=== PATIENT | male | born 1995 | race Caucasian/White ===

== ENCOUNTER 2018-06-28 12:56 | Emergency (ER) | payer SELFPAY ==
[2018-06-28 12:56] VITALS: BMI 30.2
[2018-06-28 13:28] VITALS: BP 132/72; PULSE 77; RESP 20; TEMP 98.6; O2SAT 98
--- NOTE | 2018-06-28 13:52 | C.PDOC ---
History Of Present Illness 23 yr old male w/ hx of marijuana use p/w chest pain. Pt notes x2 weeks of chest pain after playing basketball and being hit with an elbow into this chest. He notes L sided rib pain, worse with palpation and worse with intermittent deep breaths. No leg swelling, hemoptysis or hx of recent surgery or blood clots. No headache or neck pain or abdominal pain. No N/v. Has not taken any meds for the pain. No SOB. No orthopnea, pnd or leg swelling. No rash. No other complaints. Time Seen by Provider: 06/28/18 13:19 Chief Complaint (Nursing): Chest Pain Past Medical History Vital Signs: Last Vital Signs Temp 98.6 F 06/28/18 13:26 Pulse 77 06/28/18 13:26 Resp 20 06/28/18 13:26 BP 132/72 06/28/18 13:26 Pulse Ox 98 06/28/18 13:26 Primary Care Provider: FAMILY PROVIDER,NO Family History: States: Unknown Family Hx - Social History Hx Tobacco Use: No Hx Alcohol Use: No Hx Substance Use: Yes (marijuana) - Immunization History Hx Tetanus Toxoid Vaccination: No Hx Influenza Vaccination: No Hx Pneumococcal Vaccination: No Review Of Systems Constitutional: Negative for: Fever, Chills Eyes: Negative for: Pain, Vision Change ENT: Negative for: Ear Pain, Ear Discharge, Nose Pain, Nose Discharge, Nose Congestion, Mouth Pain, Mouth Swelling, Throat Pain Cardiovascular: Positive for: Chest Pain. Negative for: Palpitations, Orthopnea, Paroxysmal Noc. Dyspnea, Edema, Light Headedness Respiratory: Negative for: Cough, Shortness of Breath, Hemoptysis, SOB with Excertion, Sputum, Wheezing Gastrointestinal: Negative for: Nausea, Vomiting, Abdominal Pain, Diarrhea, Constipation, Melena, Hematochezia, Hematemesis Genitourinary: Negative for: Dysuria, Frequency, Hematuria, Penile Discharge, Rash, Penile Pain Musculoskeletal: Negative for: Neck Pain, Shoulder Pain, Back Pain, Hand Pain Skin: Negative for: Rash, Lesions, Jaundice Neurological: Negative for: Weakness, Numbness, Headache Psych: Negative for: Anxiety, Depression, Psychosis Physical Exam - Physical Exam Appears: Well, Non-toxic, No Acute Distress Skin: Normal Color, Warm, Dry Head: Atraumatic, Normacephalic, No Tenderness Eye(s): bilateral: Normal Inspection, PERRL, EOMI Ear(s): Bilateral: Normal Nose: Normal Tongue: Normal Appearing Lips: Normal Appearing Throat: Normal, No Erythema, No Exudate, No Drooling, No Mass Neck: Normal, Normal ROM, No Decreased ROM, No Midline Cervical Tenderness, No Paracervical Tenderness, Supple, Other (no meningeal signs) Lymphatic: Normal Exam, No Adenopathy Chest: Symmetrical, No Deformity, Tenderness (L chest), No Ecchymosis, No Subcutaneous Emphysema Cardiovascular: Rhythm Regular, No Rhythm Irregular, No Friction Rub, No Murmur, No JVD Respiratory: Normal Breath Sounds, No Decreased Breath Sounds, No Accessory Muscle Use, No Rales, No Rhonchi, No Stridor, No Wheezing Gastrointestinal/Abdominal: Normal Exam, Soft, No Tenderness, No Mass, No Distention, No Guarding Back: Normal Inspection, No CVA Tenderness, No Vertebral Tenderness Extremity: Normal ROM, No Tenderness Extremity: Bilateral: Atraumatic, No Pedal Edema, Normal Color And Temperature, Pelvis-Stable Pulses: Left Radial: Normal, Right Radial: Normal, Left Dorsalis Pedis: Normal, Right Dorsalis Pedis: Normal Neurological/Psych: Oriented x3, Normal Speech, Normal Cognition, Normal Cranial Nerves, No Cerebellar Signs, Normal Motor Gait: Steady ED Course And Treatment - Laboratory Results Result Diagrams: 06/28/18 14:03 06/28/18 14:03 O2 Sat by Pulse Oximetry: 98 Medical Decision Making Medical Decision Makin yr old male p/w L sided chest pain after being elbowed in the chest while playing basketball. CP reproducible to palpation, non pleuritic. No sob, orthopnea or pnd. Likely chest wall pain given reproducible, pending imaging, labs EK, nsr, no stemi 1526 imaging unremarkable labs unremarkable pt notes pain resolved clear for d/c home w/ return indications and f/u. Pt agreeable to plan Disposition - Disposition Referrals: Layton Alvares MD [Staff Provider] - Sr. Director [employer] Management Service [Outside] [facility] [Outside] [facility] [Outside] Roselle ArQule [facility] [Outside] Disposition: HOME/ ROUTINE Disposition Time: 15:23 Condition: STABLE Additional Instructions: SHITAL PEÑALOZA, thank you for letting us take care of you today. Your provider was Evan Mcdonald and you were treated for CHEST PAIN. The emergency medical care you received today was directed at your acute symptoms. If you were prescribed any medication, please fill it and take as directed. It may take several days for your symptoms to resolve. Return to the Emergency Department if your symptoms worsen, do not improve, or if you have any other problems. Please contact your doctor or call one of the physicians/clinics you have been referred to that are listed on the Patient Visit Information form that is included in your discharge packet. Bring any paperwork you were given at discharge with you along with any medications you are taking to your follow up visit. Our treatment cannot replace ongoing medical care by a primary care provider outside of the emergency department. Thank you for allowing the [facility] team to be part of your care today. If you had an X-Ray or CT scan: A Radiologist will review the ED reading if any change in treatment is needed we will contact you. If you had a blood, urine, or wound culture: It will take several days for the results, if any change in treatment is needed we will contact you. If you had an STI test: It will take 48 hours for the results. Please call after 1 week if you have not heard back. Instructions: Chest Pain (DC), Costochondritis (DC) Forms: [facility] ([place]) - Clinical Impression Clinical Impression: Chest pain, Chest wall pain
[2018-06-28 14:07] LABS: BASO % 0.6 % (0.0-2.0); EOS # 0.1 K/uL (0.0-0.7); EOS % 2.3 % (0.0-4.0); HEMOGLOBIN 14.8 g/dL (12.0-18.0); LYMPH # 1.6 K/uL (1.0-4.3); MEAN CELL VOLUME 96.1 fL (80.0-94.0); MEAN CORPUSCULAR HEMOGLOBIN 33.1 pg (27.0-31.0); MEAN CORPUSCULAR HGB CONC 34.5 g/dL (33.0-37.0); MONO # 0.5 K/uL (0.0-0.8); MONO % 9.4 % (0.0-10.0); NEUT # 3.2 K/uL (1.8-7.0); NEUT % 58.7 % (50.0-75.0); NRBC % 0.1 % (0.0-2.0); RBC 4.47 Mil/uL (4.40-5.90); RED CELL DISTRIBUTION WIDTH 12.8 % (11.5-14.5); WHITE BLOOD COUNT 5.5 K/uL (4.8-10.8)
[2018-06-28 14:26] LABS: ALB/GLOB RATIO 1.5 (1.0-2.1); ALBUMIN 4.5 g/dL (3.5-5.0); ALT/SGPT 20 U/L (21-72); AST/SGOT 22 U/L (17-59); BLOOD UREA NITROGEN 16 mg/dL (9-20); CALCIUM 9.8 mg/dl (8.6-10.4); GFR NON-AFRICAN AMERICAN > 60
--- NOTE | 2018-06-28 14:48 | RAD ---
Date of service: 06/28/2018 PROCEDURE: Radiographs of the Chest and Left Ribs. HISTORY: Chest pain COMPARISON: None available. TECHNIQUE: Frontal radiograph of the chest and multiple oblique radiographs of the left ribs were obtained. 4 views obtained. FINDINGS: LEFT RIBS: No acute rib fracture or focal lesion visualized. LUNGS: The lungs are well inflated and clear. PLEURA: No pneumothorax or pleural fluid. CARDIOVASCULAR: Normal cardiac size. No pulmonary vascular congestion. No aortic atherosclerotic calcification present OTHER FINDINGS: None. IMPRESSION: No acute findings. No acute rib fracture. Clear lungs.
--- NOTE | 2018-07-01 16:16 | CARD ---
APPROVED REPORT Date of service: 06/28/2018 EKG Measurement Heart [id number] MD [id number] <Conclusion> Normal sinus rhythm Normal ECG
== END 2018-06-28 15:34 | disposition home or self-care (01) ==
LOC: C.ER 12:56
DX: R07.89 Other chest pain (principal)